=== PATIENT | female | born 1955 | race Caucasian/White ===

== ENCOUNTER 2016-08-13 09:50 | Outpatient (CLI) | payer OTHER ==
[2016-08-13 10:29] LABS: ALT (SGPT) 16 U/L (0-55); AST (SGOT) 16 U/L (5-34); Alkaline Phosphatase 80 U/L (40-150); Anion Gap 16 mmol/L (10-20); BUN (Urea Nitrogen) 12 mg/dL (9.8-20.1); Bilirubin, Total 0.8 mg/dL (0.2-1.2); Calc. Creatinine Clearance 0 mL/min (70-130); Calcium 9.2 mg/dL (7.8-10.44); Carbon Dioxide 26 mmol/L (23-31); Chloride 102 mmol/L (98-107); Estimated GFR-MDRD 59; Globulin 3.4 g/dL (2.4-3.5); LDL Cholesterol, Calculated 123 mg/dL; Protein, Total 7.4 g/dL (5.8-8.1)
== END 2016-08-13 09:51 | disposition home or self-care (01) ==
LOC: NAV LAB 09:50
PROVIDERS: ATTEND Internal Medicine Cardiovascular Disease
DX: E78.00 Pure hypercholesterolemia, unspecified (principal)
CPT/HCPCS: 36415; 80053; 80061

== ENCOUNTER 2016-09-19 16:15 | Outpatient (CLI) | payer OTHER | END 2016-09-19 16:16 | disposition home or self-care (01) | LOC: NAV LAB 16:15 | PROVIDERS: ATTEND Family Medicine | DX: Z11.59 Encounter for screening for other viral diseases (principal) | CPT/HCPCS: 86803 ==

== ENCOUNTER 2016-10-02 04:39 | Outpatient (CLI) | payer OTHER ==
[2016-10-02 05:08] LABS: Hemoglobin A1c 7.8 % (4.0-6.0)
[2016-10-02 05:31] LABS: ALT (SGPT) 13 U/L (0-55); AST (SGOT) 17 U/L (5-34); Albumin 4.1 g/dL (3.4-4.8); Alkaline Phosphatase 80 U/L (40-150); Anion Gap 17 mmol/L (10-20); BUN (Urea Nitrogen) 18 mg/dL (9.8-20.1); Bilirubin, Total 0.6 mg/dL (0.2-1.2); Calc. Creatinine Clearance 0 mL/min (70-130); Carbon Dioxide 22 mmol/L (23-31); Cardiac Risk 3.2 (Less than 4.5); Chloride 104 mmol/L (98-107); Cholesterol 215 mg/dL (< 200 Desired); Estimated GFR-MDRD 61; Globulin 2.8 g/dL (2.4-3.5); Glucose 112 mg/dL (80-115); HDL Cholesterol 68 mg/dL (>60 Neg Risk); LDL Cholesterol, Calculated 127 mg/dL; Potassium 4.3 mmol/L (3.5-5.1); Protein, Total 6.9 g/dL (5.8-8.1); Sodium 139 mmol/L (136-145); Triglycerides 102 mg/dL (Less than 150)
[2016-10-02 17:41] LABS: Hep C IgG Ab Non-Reactive (NonReactive); Hep C Index 0.14 S/CO (0-0.79)
== END 2016-10-02 04:40 | disposition home or self-care (01) ==
LOC: NAV LAB 04:39
PROVIDERS: ATTEND Internal Medicine Endocrinology, Diabetes & Metabolism
DX: E78.5 Hyperlipidemia, unspecified (principal); E10.59 Type 1 diabetes mellitus with other circulatory complications
CPT/HCPCS: 36415; 80053; 80061; 83036; 86803

== ENCOUNTER 2017-02-19 02:37 | Outpatient (CLI) | payer OTHER ==
[2017-02-19 03:11] LABS: Hemoglobin A1c 8.4 % (4.0-6.0)
[2017-02-19 03:20] LABS: ALT (SGPT) 11 U/L (8-55); AST (SGOT) 13 U/L (5-34); Albumin 3.9 g/dL (3.4-4.8); Alkaline Phosphatase 69 U/L (40-150); Anion Gap 16 mmol/L (10-20); BUN (Urea Nitrogen) 17 mg/dL (9.8-20.1); Bilirubin, Total 0.5 mg/dL (0.2-1.2); Calc. Creatinine Clearance 0 mL/min (70-130); Carbon Dioxide 25 mmol/L (23-31); Chloride 101 mmol/L (98-107); Estimated GFR-MDRD 57; Glucose 158 mg/dL (80-115); Potassium 3.9 mmol/L (3.5-5.1); Protein, Total 6.9 g/dL (6.0-8.3); Sodium 138 mmol/L (136-145)
[2017-02-19 18:35] LABS: Creatinine, Urine 97.89 mg/dL (47-110); Microalbumin Urine Less than 1.0 mg/dL (0.5-50.0); Microalbumin/Creat Ratio 10.2 mg/g (Less than 30)
[2017-02-19 19:54] LABS: Cardiac Risk 3.1 (Less than 4.5); Cholesterol 181 mg/dl (< 200 Desired); HDL Cholesterol 59 mg/dL (>60 Neg Risk); LDL Cholesterol, Calculated 102 mg/dL; Triglycerides 102 mg/dL (Less than 150)
== END 2017-02-19 02:38 | disposition home or self-care (01) ==
LOC: NAV LAB 02:37
PROVIDERS: ATTEND Internal Medicine Endocrinology, Diabetes & Metabolism
DX: E78.5 Hyperlipidemia, unspecified (principal); E10.59 Type 1 diabetes mellitus with other circulatory complications; I10 Essential (primary) hypertension
CPT/HCPCS: 36415; 80053; 80061; 82043; 83036

== ENCOUNTER 2018-08-26 11:13 | Emergency (ER) | payer BC ==
[2018-08-26 11:56] LABS: #Basophils 0.1 thou/uL (0.0-0.2); #Lymphocytes 2.3 thou/uL (1.20-3.40); #Monocytes 0.7 thou/uL (0.11-0.59); %Basophils 0.8 % (0.0-1.0); %Lymphocytes 23.3 % (21.0-51.0); %Monocytes 6.7 % (0.0-10.0); %Neutrophils 69.2 % (42.0-75.0); Hemoglobin 12.4 g/dL (12.0-16.0); Mean Corpuscular HGB CONC 32.9 g/dL (32.0-36.0); Mean Corpuscular Hemoglobin 29.4 pg (27.0-31.0); Mean Corpuscular Volume 89.3 fL (78.0-98.0); Mean Platelet Volume 8.5 fL (7.4-10.4); Platelet Count 277 thou/uL (130-400); RBC Distribution Width 12.2 % (11.5-14.5); Red Blood Cell (RBC) Count 4.21 mill/uL (4.20-5.40); White Blood Cell (WBC) Count 10.1 thou/uL (4.8-10.8)
[2018-08-26] MEDS ORDERED: Aspirin Chewable 81 MG TAB ONE (12:06)
[2018-08-26] MEDS ORDERED: Ondansetron ODT 4 MG TAB ONE (12:06)
[2018-08-26 12:12] LABS: ALT (SGPT) 12 U/L (8-55); AST (SGOT) 14 U/L (5-34); Albumin 4.3 g/dL (3.4-4.8); Alkaline Phosphatase 63 U/L (40-150); Anion Gap 16 mmol/L (10-20); BUN (Urea Nitrogen) 35 mg/dL (9.8-20.1); Bilirubin, Total 0.6 mg/dL (0.2-1.2); Calc. Creatinine Clearance 0 mL/min (70-130); Calcium 9.9 mg/dL (7.8-10.44); Carbon Dioxide 29 mmol/L (23-31); Chloride 95 mmol/L (98-107); Estimated GFR-MDRD 35; Globulin 3.1 g/dL (2.4-3.5); Glucose 106 mg/dL (80-115); Potassium 4.6 mmol/L (3.5-5.1); Protein, Total 7.4 g/dL (6.0-8.3); Sodium 135 mmol/L (136-145)
--- NOTE | 2018-08-26 12:25 | RAD ---
CHEST 1 VIEW: Date: 08/26/18 HISTORY: Chest pain. COMPARISON: None. FINDINGS/IMPRESSION: Lungs are clear. No pneumothorax or effusion. Cardiac silhouette and mediastinal contours appear with in normal limits. POS: [facility]
[2018-08-26 12:39] LABS: Bilirubin Negative (Negative); Blood, Urine Negative (Negative); Clarity Slightly Cloudy (Clear); Glucose, Urine (Dipstick) Negative (Negative); Leukocyte Moderate (Negative); Nitrite Negative (Negative); Protein, Urine (Dipstick) Negative (Neg-Trace); Urobilinogen 0.2 mg/dL (0.2-1.0); pH, Urine 6.5 (5.0-9.0)
[2018-08-26 12:50] LABS: RBC/HPF 0-3 HPF (0-3); Squamous Epithelial 0-3 HPF (0-3)
[2018-08-26 12:51] LABS: Bacteria/HPF 1+ HPF (None Seen); Hyaline Casts/LPF 0-3 HYALINE CAST LPF (0-3 Hyaline)
[2018-08-26] MEDS ORDERED: Sodium Chloride 0.9% 1,000 ML ONE (12:53)
--- NOTE | 2018-08-26 13:41 | CT ---
CT BRAIN WITHOUT CONTRAST: Date: 08/26/18 HISTORY: Dizziness, weakness. COMPARISON: CT brain from 2015. FINDINGS: No acute infarct or hemorrhage. No midline shift or mass effect. Ventricular size and extra-axial CSF spaces are normal. 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 Calvarium is intact. Paranasal sinuses and mastoids are clear. IMPRESSION: No acute intracranial abnormality. POS: [facility]
== END 2018-08-26 13:33 | disposition short-term general hospital (02) ==
LOC: NAV ERS 11:13
DX: N17.9 Acute kidney failure, unspecified (principal); I25.10 Atherosclerotic heart disease of native coronary artery without angina pectoris; E11.9 Type 2 diabetes mellitus without complications; K21.9 Gastro-esophageal reflux disease without esophagitis; E78.5 Hyperlipidemia, unspecified; Z79.899 Other long term (current) drug therapy; Z79.4 Long term (current) use of insulin; Z79.82 Long term (current) use of aspirin
CPT/HCPCS: 36415; 70450; 71045; 80053; 81003; 81015; 83605; 84484; 85025; 85379; 93005; 94760; 96360; J7050; Q0162